=== PATIENT | female | born 1995 | race American Indian/Alaskan Native ===

== ENCOUNTER 2020-03-30 11:48 | Inpatient (IN) | payer OTHER ==
[~2020-03-30] VITALS: Ht 152.4 cm; Wt 54.4 kg
--- NOTE | ~2020-03-30 | O ---
[facility] [place] [address] OPERATIVE REPORT Name: KENNA SAN Room #: 437-P ADM IN M.R.#: [id number] Admission: 03/30/20 Attend Phys: Juan Koehler MD Discharge: Date of : 89 Report #: [id number] THIS REPORT FOR: cc: ALEX - No family physician/PCP ALEX - No family physician/PCP Trace Owens MD ~ CC: Juan Patrick [facility] physician/PCP DATE OF SERVICE: 04/02/2020 PREOPERATIVE DIAGNOSES: Gallstone pancreatitis. POSTOPERATIVE DIAGNOSES: Gallstone pancreatitis. OPERATION: Laparoscopic cholecystectomy with intraoperative cholangiogram. SURGEON: Trace Owens MD ANESTHESIA: General. ESTIMATED BLOOD LOSS: Minimal. SPECIMEN: Gallbladder. DESCRIPTION OF PROCEDURE: After informed consent was obtained, the patient was brought to the operating room and placed supine. SCDs were placed and working, preoperative antibiotics were administered, general anesthesia was induced. The abdomen was prepped and draped in the usual sterile fashion. A 10 mm incision was made below the umbilicus. Fascia was incised and a trocar was placed. Pneumoperitoneum was established. Three right upper quadrant 5 mm ports were placed. Gallbladder was grasped at the fundus and retracted cephalad. Infundibulum was grasped and retracted laterally. I dissected out the cystic duct and cystic artery. A ductotomy was made. A cholangiogram catheter was inserted into the cystic duct. A cholangiogram was performed. This demonstrated filling of the cystic duct, common bile duct, common hepatic duct, bifurcation of the hepatics, smooth flow into the duodenum without any filling defects. This was normal. Cholangiogram catheter was removed. The cystic duct was clipped and ligated leaving a clip and a PDS Endoloop on the remaining ducts. The artery was clipped and ligated with a single clip. Gallbladder was then taken off the liver bed with electrocautery. It was placed into an Endopouch and removed. Fascia was then closed with a [id number] 0 Vicryl. Skin was closed with [facility] [address] [place] [address] OPERATIVE REPORT Name: KENNA SAN Room #: 437-P [facility] IN M.R.#: [id number] Admission: 03/30/20 Attend Phys: Juan Koehler MD Discharge: Date of : 89 Report #: [id number] 4-0 Monocryl. Incisions were sealed with Dermabond. COMPLICATIONS: None. DISPOSITION: The patient was taken to recovery in satisfactory condition. By: [id number] Trace Owens MD /nt
[2020-03-30 11:55] VITALS: BP 134/69
[2020-03-30 12:33] LABS: ABSOLUTE NEUTROPHILS 11.5 thou/uL (1.4-8.2); BASOPHILS 0.3 % (0.0-2.0); EOSINOPHILS 0.1 % (0.0-3.0); HEMOGLOBIN 15.8 gm/dL (12.0-15.0); LYMPHOCYTES 8.5 % (24.0-44.0); MCH 32.1 pg (26.0-34.0); MCHC 33.7 g/dL (28.0-37.0); MCV 95.1 fL (80.0-100.0); MONOCYTES 5.1 % (1.0-8.0); PLATELET COUNT 339 thou/uL (150-400); RBC 4.94 mil/uL (4.20-5.00); RDW 14.6 % (10.5-14.5); WBC 13.3 thou/uL (4.0-11.0)
[2020-03-30 12:35] LABS: ANION GAP 13 mmol/L (7-16); BUN 8 mg/dL (7-18); CALCIUM 9.3 mg/dL (8.5-10.1); CHLORIDE 101 mmol/L (98-107); CO2 25 mmol/L (21-32); CREATININE 0.8 mg/dL (0.6-1.0); GLUCOSE 158 mg/dL (74-106); POTASSIUM 3.6 mmol/L (3.5-5.1); SODIUM 139 mmol/L (136-145)
[2020-03-30 12:41] LABS: ALBUMIN 4.1 g/dL (3.4-5.0); SGOT 756 U/L (15-37); SGPT 829 U/L (30-65); TOTAL BILIRUBIN 2.4 mg/dL (0.2-1.0); TOTAL PROTEIN 8.9 g/dL (6.4-8.2)
[2020-03-30 12:52] LABS: LIPASE > 30000 U/L (73-393)
[2020-03-30 14:02] VITALS: BP 132/79
[2020-03-30 14:11] VITALS: BP 132/79
[2020-03-30 14:30] VITALS: BP 101/59
--- NOTE | 2020-03-30 19:49 | NUR ---
Alert, calm and coperative; no sign of pain, NPO, tolerate well.
[2020-03-30 19:52] VITALS: BP 98/64
--- NOTE | 2020-03-31 05:29 | NUR ---
ASSUMED PT CARE AT APPROX 1900.PT AXOX4.PT SPEAKS LATVIAN ONLY.UP WITH SBA TO THE BR.UA COLLECTED,SENT TO LAB.PT'S COVID TESTING DONE.PT NPO .NO COMPLAINT OF PAIN NOTED SO FAR.BG MONITORED WAS 91, NO COVERAGE NEEDED.IV ABX AND IV FLUIDS ADMIINISTERED PER ORDER.PT SLEEPING ON HER BED AT THIS TIME.CALL LIGHT WITHIN REACH.
[2020-03-31 06:14] LABS: ABSOLUTE NEUTROPHILS 4.7 thou/uL (1.4-8.2); BASOPHILS 0.4 % (0.0-2.0); EOSINOPHILS 2.2 % (0.0-3.0); HEMATOCRIT 36.5 % (37.0-47.0); LYMPHOCYTES 16.4 % (24.0-44.0); MCH 33.1 pg (26.0-34.0); MCHC 34.3 g/dL (28.0-37.0); MCV 96.6 fL (80.0-100.0); MONOCYTES 6.7 % (1.0-8.0); POLYS 74.3 % (36.0-66.0); RBC 3.78 mil/uL (4.20-5.00); RDW 15.3 % (10.5-14.5); WBC 6.3 thou/uL (4.0-11.0)
[2020-03-31 06:32] LABS: HEMOGLOBIN 12.5 gm/dL (12.0-15.0); PLATELET COUNT 225 thou/uL (150-400)
[2020-03-31 06:36] LABS: ALBUMIN 2.6 g/dL (3.4-5.0); CALCIUM 7.5 mg/dL (8.5-10.1); CREATININE 0.7 mg/dL (0.6-1.0); MAGNESIUM 1.8 mg/dL (1.8-2.4); POTASSIUM 3.6 mmol/L (3.5-5.1); TOTAL BILIRUBIN 2.4 mg/dL (0.2-1.0); TOTAL PROTEIN 6.3 g/dL (6.4-8.2)
[2020-03-31 07:26] LABS: URINE BILIRUBIN 2+ (Negative); URINE BLOOD NEGATIVE (Negative); URINE CLARITY CLEAR; URINE GLUCOSE-RANDOM* NEGATIVE (Negative); URINE KETONES TRACE (Negative); URINE LEUKOCYTES-REFLEX NEGATIVE (Negative); URINE NITRITE-REFLEX NEGATIVE (Negative); URINE PROTEIN (DIPSTICK) NEGATIVE (Negative); URINE SPECIFIC GRAVITY 1.025 (1.005-1.035)
[2020-03-31 07:28] LABS: ICTOTEST (BILI CONFIRMATORY) Positive (Negative); URINE COLOR AMBER
[2020-03-31 07:39] VITALS: BP 105/69
--- NOTE | 2020-03-31 11:37 | NUR ---
ASSUMED CARE AT 0700. PT CZECH SPEAKING. [id number] THROUGH POWER TRANSFORMER INSPECTOR VIA PHONE. VSSA/RA. NO COMPLAINTS AT THIS TIME. PT IS NPO WAITING FOR POSSIBLE SURGERY. ACCUCHECKS Q6. PIV INFUSING. PT IS NOT A FALL RISK. EDUCATED PT TO CALL IF NEEDS ARISE. CALL LIGHT IN REACH. WILL CONTIUE TO MONITOR
--- NOTE | 2020-03-31 13:57 | NUR ---
Case opened to assess for dc planning needs. Pt is Kyrgyz speaking only and admitted for gallstone pancreatitis. She had ERCP today but will need lap sorin this admission. 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 She lives with her uncle and sign other as well as her small child. She does not have have health insurance and is from [place]. She has good support at dc and would like to complete the floyd application. She states that her child does not have health ins and was born in [place] and [place] therefore [place]. The pt denies any dc needs or concerns other than the hospital bill. [facility] referral in progress. DC plan is home with no needs postop lap sorin.
[2020-03-31 20:09] VITALS: BP 114/65
--- NOTE | 2020-04-01 05:14 | NUR ---
PATIENT ALERT AND ORIENTED X4. FRENCH SPEAKING, HOWEVER, ABLE TO COMMUNICATE. UP TO BATHROOM WITH SBA. DENIES PAIN. IVF INFUSING W/O COMPLICATION. BS MONITORED PER ORDER. COVID TEST - NEGATIVE. SURGERY CALLED AND NOTIFIED THIS NURSE OF SURGERY Friday04/02/20 FOR LAP AMBAR WITH GRAMS AT 1400. WILL BE NPO PER PROCEDURE. RESTING QUIETLY AT TIME OF NOTE.
[2020-04-01 05:54] LABS: HEMOGLOBIN 12.2 gm/dL (12.0-15.0); MCH 32.3 pg (26.0-34.0); MCHC 33.7 g/dL (28.0-37.0); MCV 95.7 fL (80.0-100.0); RBC 3.77 mil/uL (4.20-5.00); RDW 14.9 % (10.5-14.5); WBC 6.7 thou/uL (4.0-11.0)
[2020-04-01 06:05] LABS: ALBUMIN 2.6 g/dL (3.4-5.0); CREATININE 0.7 mg/dL (0.6-1.0); POTASSIUM 3.5 mmol/L (3.5-5.1); TOTAL BILIRUBIN 1.1 mg/dL (0.2-1.0); TOTAL PROTEIN 6.5 g/dL (6.4-8.2)
[2020-04-01 09:07] VITALS: BP 119/71
--- NOTE | 2020-04-01 14:22 | NUR ---
Received awake on bed. Due medications given as prescribed. A+Ox4, amharic speaking. MS, not on telemetry; no complaints of chest pain, crushing sensation and heaviness. On room air. On clear liquid diet- offered clear liquid menu to patient; no nausea, no vomiting and no abdominal pain noted. On blood sugar monitoring every 6 hrs- taken and recorded accordingly; with sliding scale insulin prescribed. With NS at 200cc/hr, infusing well at R AC. Up ad oneal. Pt scheduled to have lap sorin tomorrow at 1400. Assisted in ADLs. Pt visited by relative today, update given, informed re: OR schedule for tomorrow. No complaints of pain made during assessment. Pt to be transferred to [address] [place] [address], relative informed re: transfer and new room number. Pt transferred via wheelchair with her personal belongings. Report give to RADHA Woods. Dr Koehler informed re: transfer to 437
[2020-04-01 21:24] VITALS: BP 123/73
--- NOTE | 2020-04-02 01:15 | NUR ---
ASSUMED PT CARE AT 1900. NPO SINCE MIDNIGHT FOR PROCEDURE IN AM. BS WNL. FLUILDS AND ANTIBIOTICS INFUSING PER ORDER. NO SIGNIFICANT CHANGES AT THIS TIME, WILL CONTINUE TO MONITOR.
[2020-04-02 10:11] VITALS: BP 120/73
--- NOTE | 2020-04-02 17:15 | NUR ---
PT A&OX4. IV INTACT IN R FA INFUSING NS @100/HR. [facility]IS[facility]4 WITH DERMABOUND. PT SPEAKS NO WOLOF, DENIES PAIN OR N/V. VSS. CALL LIGHT W/I REACH, BED ALARM ON.
[2020-04-02 17:33] VITALS: BP 118/69
[2020-04-02 19:05] VITALS: BP 112/72
--- NOTE | 2020-04-02 21:59 | NUR ---
ASSESSMENT COMPLETED. DIVEHI SPEAKING-USES PHONE SASKIA TO COMMUNICATE. SHE DENIES PAIN. SHE ALSO DENIES NAUSEA OR VOMITING.LAPSITES TO ABDOMEN LOOK OKAY. SCDS IN PLACE, NO EDEMA. PT ABLE TO WALK WITH SBA TO THE BATHROOM, VOIDING OKAY.IVF AND ABTS INFUSING. AFEBRILE. TAKEN OFF OXYGEN, SHE IS SATTING OKAY ON ROOM AIR. PROGRESSING TOWARDS CARE GOALS.
[2020-04-03 00:01] VITALS: BP 104/61
[2020-04-03 07:42] VITALS: BP 118/75
[2020-04-03] MEDS ORDERED: ACETAMINOPHEN650 M5 PO (10:18)
[2020-04-03] MEDS ORDERED: ZOFRAN4 MG PO (10:18)
[2020-04-03] MEDS ORDERED: PEPCID20 MG PO (10:18)
--- NOTE | 2020-04-03 10:39 | NUR ---
ASSUMED PATIENT CARE AT SHIFT CHANGE. ASSESSMENT CHARTED. MEDICATIONS GIVEN PER EMAR. VSS. VOICES PAIN WITH MOVEMENT AT A 3/10 BUT PREFERS NOT TO TAKE PRN PAIN MEDS. PATIENT A&OX4, UKRAINIAN SPEAKING; NO PORTUGUESE. IV ABX INFUSING W FLUIDS. POST LAP AMBAR SURGICAL INCISIONS C/D/I. PATIENT IS MEDICALLY STABLE AND CLEARED FOR DISCHARGE. ANTICIPATES TRANSPOTATION AT 1300. VOICES NO OTHER NEEDS. WILL CONTINUE TO MONITOR.
--- NOTE | 2020-04-03 12:01 | NUR ---
CARE TEAM INDICATED THAT PT IS MEDICALLY STABLE TO DC HOME THIS DAY. PT TO DC HOME TO SELF CARE. NO OTHER CM INTERVENTION INDICATED. CASE CLOSED.
[2020-04-03 12:52] VITALS: BP 118/75
--- NOTE | 2020-04-05 14:07 | PATH ---
[facility] [address] [place] [address] PATHOLOGY RPT PROCEDURE Name: CARIDAD SAN Room #: 437-P DIS IN M.R.#: [id number] Admission: 03/30/20 Date of : 89 Discharge: 04/03/20 Report #: [id number] Path Case #: [id number] [facility] Accession Number: [id number] . 01 Material submitted: . gallbladder - GALLBLADDER . 01 Clinical history: . GALLSTONES PANCREATITIS . 02 Diagnosis: Gallbladder, cholecystectomy: - Moderate acute and chronic cholecystitis. - Cholelithiasis. 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 02 Electronically signed: . Tootie Muñoz MD, Pathologist NPI- [id number] . 01 Gross description: . The specimen is received in formalin labeled "Caridad San, gallbladder" and consists of an intact pink abel gallbladder measuring 9.7 x 3.5 x 2.3 cm. The margin is inked black. Opening reveals a lumen filled with thick yellow brown material and multiple fragmented yellow calculi measuring 4.5 x 4.5 cm in aggregate. The mucosa is pink-weaver and granular with fibrous streaks and an average wall thickness of 0.2 cm. No masses are identified. Cardiology Coordinator sections are submitted in A1. (SDY; 04/04/2020) SYU/SYU 04/04/2020 1730 Local . 02 Pathologist provided ICD-10: K80.12 . 02 CPT . 437727 Specimen Comment: A courtesy copy of this report has been sent to [phone], [phone] Specimen Comment: [phone] Specimen Comment: Report sent to / DR ANAYA Performed at: [address] [id number] MD Parish Pitts MD Phone: [phone] Performed at: [address] [address] PATHOLOGY RPT PROCEDURE Name: CARIDAD SAN Room #: 437-P DIS IN M.R.#: [id number] Admission: 03/30/20 Date of : 89 Discharge: 04/03/20 Report #: [id number] Path Case #: [id number] [address] [place], [place] [id number] MD Tootie Muñoz MD Phone: [phone]
== END 2020-04-03 14:26 | disposition home or self-care (01) | DRG 853 ==
LOC: ER 11:48 → EDBD 11:48 → EROBS 13:52 → 4W 14:18 → 4S 04-01 13:23
PROVIDERS: Nurse Practitioner; Physician Assistant; ADMIT Hospitalist; ATTEND Hospitalist
PROC: 0FT44ZZ Resection of Gallbladder, Percutaneous Endoscopic Approach (ICD-10-PCS; principal; 2020-04-02)
PROC: BF121ZZ Fluoroscopy of Gallbladder using Low Osmolar Contrast (ICD-10-PCS; principal; 2020-04-02)
DX: A41.9 Sepsis, unspecified organism (principal); K85.10 Biliary acute pancreatitis without necrosis or infection; Z20.828 Contact with and (suspected) exposure to other viral communicable diseases; K80.20 Calculus of gallbladder without cholecystitis without obstruction; R74.0 Nonspecific elevation of levels of transaminase and lactic acid dehydrogenase [LDH]; Z79.899 Other long term (current) drug therapy
CPT/HCPCS: 10040; 10195; 50010; 50101; 50249; 50411; 50445; 50555; 51297; 51489; 52265; 52266; 53307; 53312; 53314; 54118; 55245; 55317; 56462; 56525; 56526; 62110; 62900; 70005